=== PATIENT | male | born 1965 | race American Indian/Alaskan Native ===

== ENCOUNTER 2019-08-07 01:19 | Emergency (ER) | payer SELFPAY ==
[2019-08-07 01:27] VITALS: BP 137/86
--- NOTE | 2019-08-07 03:55 | Emergency Department Report ---
ED Rash HPI - HPI Chief Complaint: Skin Rash Stated Complaint: RASH ON BOTH ARMS Time Seen by Provider: 08/07/19 03:54 Duration: 1.5 months Location: Upper Extremities Suspected Cause: Unknown Rash Symptoms: Yes Itching, No Breathing Difficulties, No Wheezing/Dyspnea, No Peeling, No Blistering, No Fever Severity: mild Other History: 53 yo M reports itching rash to bilateral arms for 1.5 months. States he has tried benadryl and "poison christopher cream" without relief. Denies fever. ED Review of Systems ROS: Stated complaint: RASH ON BOTH ARMS Other details as noted in HPI Comment: All other systems reviewed and negative Constitutional: denies: chills, fever Skin: rash ED Past Medical Hx - Past Medical History Previous Medical History?: No - Surgical History Past Surgical History?: No - Social History Smoking Status: Never Smoker Substance Use Type: Alcohol - Medications Home Medications: Home Medications Medication Instructions Recorded Confirmed Last Taken Type No Known Home Medications [No 05/16/15 05/16/15 Unknown History Reported Home Medications] Rash Exam - Exam General: Vital signs noted. No distress. Alert and acting appropriately. HEENT: No Periorbital Edema, No Conjuctival Injection, No Tongue Edema Lungs: Yes Good Air Exchange, No Labored Respirations Heart: Yes Regular Skin: Yes Maculopapular Rash, Yes Excoriations, No Bulla(e), No Weeping, No Erythema, No Encrustations ED Course Vital Signs 08/07/19 01:26 Temperature 98.5 F Pulse Rate 85 Respiratory 18 Rate Blood Pressure 137/86 O2 Sat by Pulse 98 Oximetry ED Medical Decision Making - Medical Decision Making No emergent medical condition at this time. Outpt f/u advised. Critical care attestation.: If time is entered above; I have spent that time in minutes in the direct care of this critically ill patient, excluding procedure time. ED Disposition Clinical Impression: Rash Disposition: MED SCREENING EXAM-LEFT Is pt being admited?: No Condition: Stable Instructions: Acute Rash (ED) Referrals: [facility] [Provider Group] - 3-5 Days ADELFO SUMMERS MD [Staff Physician] - 3-5 Days Time of Disposition: 03:55
== END 2019-08-07 03:59 | disposition left against medical advice (07) ==
LOC: ED 01:19
DX: R21 Rash and other nonspecific skin eruption (principal); L29.9 Pruritus, unspecified
CPT/HCPCS: 99281

== ENCOUNTER 2020-09-21 22:55 | Emergency (ER) | payer BC ==
[2020-09-22 00:10] LABS: Hematocrit 39.9 % (35.5-45.6); Hemoglobin 13.4 gm/dl (11.8-15.2); Mean Corpuscular HGB Conc 34 % (32-34); Mean Corpuscular Volume 89 fl (84-94); Platelet Count 219 K/mm3 (140-440); Red Blood Count 4.49 M/mm3 (3.65-5.03); Red Cell Distribution Width 13.3 % (13.2-15.2)
[2020-09-22 00:38] LABS: Alanine Aminotransferase 12 units/L (7-56); Albumin 4.5 g/dL (3.9-5); Blood Urea Nitrogen 11 mg/dL (9-20); Hemolysis Index 2
[2020-09-22 00:46] LABS: BUN/Creatinine Ratio 16
[2020-09-22 01:01] LABS: Large Platelets Few; Platelet Estimate Consistent w Auto; RBC Morphology Normal; Total Cells Counted 100
--- NOTE | 2020-09-22 03:26 | Emergency Department Report ---
HPI - General Chief Complaint: Dizziness Time Seen by Provider: 09/22/20 03:12 - HPI HPI: Room 21 The patient is a 54-year-old male present with a chief complaint of headache and dizziness. Patient states his symptoms began 3 days ago within a supple h eadache. The patient states that his headache was intermittent but today while at work he developed dizziness whenever he turned. Patient denies any preceding trauma. Patient denies history of fever nausea or vomiting. The patient states he has had several episodes of this in the past but has never sought medical attention. ED Past Medical Hx - Past Medical History Previous Medical History?: No - Surgical History Past Surgical History?: No - Family History Family history: no significant - Social History Smoking Status: Current Every Day Smoker (1/3 pack/day) Substance Use Type: Marijuana - Medications Home Medications: Home Medications Medication Instructions Recorded Confirmed Last Taken Type Butalb/Acetamin/Caff 50-325-40 2 tab PO Q8HR PRN #20 tablet 09/22/20 Unknown Rx [Fioricet 50-325-40] Meclizine [Antivert] 25 mg PO TID PRN #20 tablet 09/22/20 Unknown Rx ED Review of Systems ROS: Stated complaint: HIGH BP/HEADACHE Other details as noted in HPI Constitutional: denies: fever Eyes: denies: eye pain ENT: denies: throat pain Respiratory: no symptoms reported Cardiovascular: denies: chest pain Endocrine: no symptoms reported Gastrointestinal: denies: abdominal pain, nausea, vomiting Genitourinary: denies: dysuria Musculoskeletal: denies: back pain Neurological: headache, vertigo Physical Exam - Physical Exam Vital Signs: Vital Signs 09/21/20 23:27 Temperature 98.5 F Pulse Rate 84 Respiratory 20 Rate Blood Pressure 125/84 O2 Sat by Pulse 98 Oximetry Physical Exam: GENERAL: The patient is well-developed well-nourished male lying on stretcher not appearing to be in acute distress. [] HEENT: Normocephalic. Atraumatic. Extraocular motions are intact. Patient has moist mucous membranes. No nystagmus NECK: Supple. No meningitic signs are noted. Trachea midline CHEST/LUNGS: Clear to auscultation. There is no respiratory distress noted. HEART/CARDIOVASCULAR: Regular. There is no tachycardia. There is no gallop rub or murmur. ABDOMEN: Abdomen is soft, nontender. Patient has normal bowel sounds. There is no abdominal distention. SKIN: There is no rash. There is no edema. There is no diaphoresis. NEURO: The patient is awake, alert, and oriented. The patient is cooperative. The patient has no focal neurologic deficits. The patient has normal speech. Cranial nerves II through XII grossly intact. No dysmetria noted with [id number] bilaterally. GCS 15 MUSCULOSKELETAL: There is no evidence of acute injury. ED Course Vital Signs 09/21/20 23:27 Temperature 98.5 F Pulse Rate 84 Respiratory 20 Rate Blood Pressure 125/84 O2 Sat by Pulse 98 Oximetry ED Medical Decision Making - Lab Data Result diagrams: 09/21/20 23:35 09/21/20 23:35 Laboratory Tests 09/21/20 09/21/20 23:35 23:35 WBC 8.2 RBC 4.49 Hgb 13.4 Hct 39.9 MCV 89 MCH 30 MCHC 34 RDW 13.3 Plt Count 219 Lymph % (Auto) Art Gallery Director Lymph # (Auto) Art Gallery Director Add Manual Diff Complete Total Counted 100 Seg Neutrophils % Art Gallery Director Seg Neuts % (Manual) 32.0 L Lymphocytes % (Manual) 54.0 H Monocytes % (Manual) 10.0 H Eosinophils % (Manual) 2.0 Basophils % (Manual) 2.0 H Nucleated RBC % Not Reportable Seg Neutrophils # Man 2.6 Band Neutrophils # 0.0 Lymphocytes # (Manual) 4.4 Abs React Lymphs (Man) 0.0 Monocytes # (Manual) 0.8 Eosinophils # (Manual) 0.2 Basophils # (Manual) 0.2 H Metamyelocytes # 0.0 Myelocytes # 0.0 Promyelocytes # 0.0 Blast Cells # 0.0 WBC Morphology Not Reportable Hypersegmented Neuts Not Reportable Hyposegmented Neuts Not Reportable Hypogranular Neuts Not Reportable Smudge Cells Not Reportable Toxic Granulation Not Reportable Toxic Vacuolation Not Reportable Dohle Bodies Not Reportable Pelger-Huet Anomaly Not Reportable Adarsh Rods Not Reportable Platelet Estimate Consistent w auto Clumped Platelets Not Reportable Plt Clumps, EDTA Not Reportable Large Platelets Few Giant Platelets Not Reportable Platelet Satelliting Not Reportable Plt Morphology Comment Not Reportable RBC Morphology Normal Dimorphic RBCs Not Reportable Polychromasia Not Reportable Hypochromasia Not Reportable Poikilocytosis Not Reportable Anisocytosis Not Reportable Microcytosis Not Reportable Macrocytosis Not Reportable Spherocytes Not Reportable Pappenheimer Bodies Not Reportable Sickle Cells Not Reportable Target Cells Not Reportable Tear Drop Cells Not Reportable Ovalocytes Not Reportable Helmet Cells Not Reportable [place] Bodies Not Reportable Averill Rings Not Reportable Callao Cells Not Reportable Bite Cells Not Reportable Crenated Cell Not Reportable Elliptocytes Not Reportable Acanthocytes (Spur) Not Reportable Rouleaux Not Reportable Hemoglobin C Crystals Not Reportable Schistocytes Not Reportable Malaria parasites Not Reportable Gerardo Bodies Not Reportable Hem Pathologist Commnt No Sodium 142 Potassium 4.2 Chloride 106.8 Carbon Dioxide 24 Anion Gap 15 BUN 11 Creatinine 0.7 L Estimated GFR > 60 BUN/Creatinine Ratio 16 Glucose 99 Calcium 9.0 Total Bilirubin 0.50 AST 19 ALT 12 Alkaline Phosphatase 70 Troponin T < 0.010 Total Protein 7.2 Albumin 4.5 Albumin/Globulin Ratio 1.7 - EKG Data -: EKG Interpreted by Oh EKG shows normal: sinus rhythm Rate: normal - EKG Data When compared to previous EKG there are: previous EKG unavailable Interpretation: other (No ischemic changes seen) - Radiology Data Radiology results: report reviewed (CT head), image reviewed (CT head) [address] [address] Cat Scan Report Signed Patient: LONDON DURAN MR#: [facility] [id number] : 1965 Acct:[id number] Age/Sex: 54 / M ADM Date: 09/21/20 Loc: ED Attending Dr: Ordering Physician: PRIYANKA CARLSON MD Date of Service: 09/22/20 Procedure(s): CT head/brain wo con Accession Number(s): [id number] cc: PRIYANKA CARLSON MD CT head without contrast INDICATION : Severe headache. TECHNIQUE: Axial imaging performed from the skull apex through the skull base without the use of contrast. All CT examinations performed at this facility utilize dose modulation, iterative reconstruction or weight-based dosing, when appropriate, to reduce radiation dose to as low as reasonably achievable. COMPARISON: None FI NDINGS: No acute intracranial hemorrhage or parenchymal abnormality. Ventricles are normal in size and appear symmetric. Soft tissues including the orbits appear normal. No acute osseous abnormality. Sinuses and mastoid air cells are clear. IMPRESSION: No acute abnormality. Signer Name: Maxwell Martinez MD Signed: 09/22/2020 4:37 AM Workstation Name: [id number] Transcribed By: AMBER Dictated By: Maxwell Martinez MD Electronically Authenticated By: Maxwell Martinez MD Signed Date/Time: 09/22/20436 DD/ 5 TD/TT: Print Cancel - Differential Diagnosis Migraines, vertigo, intracranial mass, Critical care attestation.: If time is entered above; I have spent that time in minutes in the direct care of this critically ill patient, excluding procedure time. ED Disposition Clinical Impression: Headache, Dizziness Disposition: TO HOME OR SELFCARE Is pt being admited?: No Does the pt Need Aspirin: No Condition: Stable Instructions: Dizziness, [id number], General Headache Without Cause, [id number] Additional Instructions: Return to the emergency department should you develop worsening symptoms, inability to tolerate food or liquids, high fever or any other concerns Prescriptions: Meclizine [Antivert] 25 mg PO TID PRN #20 tablet PRN Reason: Vertigo Butalb/Acetamin/Caff 50-325-40 [Fioricet 50-325-40] 2 tab PO Q8HR PRN #20 tablet PRN Reason: Headache Referrals: MARY CARBONE MD [Staff Physician] - 3-5 Days (Dr. Carbone is a neurologist. Please follow-up with him for further evaluation) Time of Disposition: 05:04
[2020-09-22 03:44] VITALS: BP 125/72
--- NOTE | 2020-09-22 09:20 | Electrocardiograph Report ---
[facility] Test Date: 2020-09-21 Test Time: 23:32:24 Pat Name: LONDON DURAN Department: Room: Gender: M [employer] Education Inclusion Teacher: VEGA : 1965 Requested By: PRIYANKA CARLSON Order Number: [id number] Reading MD: Phillip Sebastian Measurements Intervals [place] Rate: 71 P: 71 SD: 146 QRS: 32 QRSD: 85 T: 27 QT: 374 QTc: 406 Interpretive Statements Sinus rhythm Right atrial enlargement No previous ECG available for comparison Electronically Signed On 09-22-2020 9:19:44 EDT by Phillip Sebastian
== END 2020-09-22 05:19 | disposition home or self-care (01) ==
LOC: ED 22:55
DX: R42 Dizziness and giddiness (principal); R51.9 Headache, unspecified; I10 Essential (primary) hypertension; F17.290 Nicotine dependence, other tobacco product, uncomplicated
CPT/HCPCS: 36415; 70450; 80053; 84484; 85007; 85025; 93005; 99284

== ENCOUNTER 2021-01-25 10:09 | Emergency (ER) | payer BC ==
--- NOTE | 2021-01-25 10:51 | Emergency Department Report ---
ED Dizziness HPI - General Chief Complaint: Dizziness Stated Complaint: BLOOD PRESSURE HIGH Time Seen by Provider: 01/25/21 10:31 Source: patient Mode of arrival: Ambulatory Limitations: No Limitations - History of Present Illness Initial Comments: Patient presents with dizziness and lightheadedness. He states that over the last 4 to 5 days he notices that he gets lightheaded and dizzy when he changes position. When he changes from a lying to sitting or sitting to standing position he notices this. As long as he sits still and remain still, he does not feel dizzy. He does not feel dizzy when he turns his head. He does not know if this is related to a prior ear injury. He had perforated both eardrums previously. Patient denies recent head trauma. He has no nausea or vomiting. He has had no diarrhea. He denies numbness or tingling in the arms or legs. He has not noticed any visual disturbance. Patient states that he came in because of been present for the last 4 days or so and he noticed it was getting slightly worse. - Related Data Previous Rx's Medication Instructions Recorded Last Taken Type Butalb/Acetamin/Caff 50-325-40 2 tab PO Q8HR PRN #20 tablet 09/22/20 Unknown Rx [Fioricet 50-325-40] Meclizine [Antivert] 25 mg PO TID PRN #20 tablet 09/22/20 Unknown Rx Allergies Allergy/AdvReac Type Severity Reaction Status Date / Time No Known Allergies Allergy Unverified 05/16/15 13:30 ED Review of Systems ROS: Stated complaint: BLOOD PRESSURE HIGH Other details as noted in HPI Comment: All other systems reviewed and negative Constitutional: denies: fever Eyes: denies: vision change ENT: denies: throat pain Respiratory: denies: cough Cardiovascular: denies: chest pain Endocrine: denies: unexplained weight loss Gastrointestinal: denies: abdominal pain Genitourinary: denies: dysuria Musculoskeletal: denies: back pain Skin: denies: rash Neurological: as per HPI Hematological/Lymphatic: denies: easy bruising ED Past Medical Hx - Past Medical History Previous Medical History?: No - Surgical History Past Surgical History?: No - Family History Family history: no significant - Social History Smoking Status: Current Every Day Smoker (We discussed tobacco cessation x3 minutes) Substance Use Type: Marijuana - Medications Home Medications: Home Medications Medication Instructions Recorded Confirmed Last Taken Type Butalb/Acetamin/Caff 50-325-40 2 tab PO Q8HR PRN #20 tablet 09/22/20 Unknown Rx [Fioricet 50-325-40] Meclizine [Antivert] 25 mg PO TID PRN #20 tablet 09/22/20 Unknown Rx ED Physical Exam - General Limitations: No Limitations, Other General appearance: alert (Pulse ox noted to normal), in no apparent distress - Head Head exam: Present: atraumatic, normocephalic, normal inspection - Eye Eye exam: Present: normal appearance, EOMI. Absent: scleral icterus - ENT ENT exam: Present: normal exam, normal orophraynx, normal external ear exam - Neck Neck exam: Present: normal inspection. Absent: meningismus - Respiratory Respiratory exam: Present: normal lung sounds bilaterally. Absent: respiratory distress - Cardiovascular Cardiovascular Exam: Present: regular rate, normal rhythm - GI/Abdominal GI/Abdominal exam: Present: soft. Absent: tenderness - Extremities Exam Extremities exam: Present: normal capillary refill. Absent: pedal edema - Back Exam Back exam: Absent: CVA tenderness (R), CVA tenderness (L) - Neurological Exam Neurological exam: Present: alert, oriented X3, CN II-XII intact, normal gait, reflexes normal, other (No pronator drift or dysdiadochokinesia. NIH score is 0.). Absent: motor sensory deficit - Psychiatric Psychiatric exam: Present: normal affect, normal mood - Skin Skin exam: Present: warm, dry ED Course Vital Signs 01/25/21 12:01 Pulse Rate [ 55 L Lying] Pulse Rate [ 62 Sitting] Pulse Rate [ 77 Standing] Blood Pressure 139/81 [Lying] Blood Pressure 144/89 [Sitting] Blood Pressure 125/89 [Standing] - Reevaluation(s) Reevaluation #1: 01/25/21 10:51 Orthostatics and Accu-Chek were ordered. Old records reviewed. Reevaluation #2: 01/25/21 13:24 Patient was discharged after work-up. ED Medical Decision Making - Medical Decision Making Patient presented with lightheadedness after movement. There was no vertiginous symptoms. This was not insidious onset. I do not believe this represents central vertigo or cerebellar stroke. NIH score was 0. He did not have any other neurologic symptoms or deficit. Again, I do not believe this represents stroke. There is no headache associated with this that would suggest subarachnoid hemorrhage. He had no head trauma to suggest subdural or epidural hematomas. He did not have any evidence of palpitation or dysrhythmia based on my exam. He was not hypoglycemic. Patient was instructed to drink fluids and return for problems. Etiology for these transient episodes of lightheadedness only with changing position was not known. Critical Care Time: No Critical care attestation.: If time is entered above; I have spent that time in minutes in the direct care of this critically ill patient, excluding procedure time. ED Disposition Clinical Impression: Lightheaded Disposition: 01 HOME / SELF CARE / HOMELESS Is pt being admited?: No Condition: Stable Additional Instructions: DRINK WATER. SEE YOUR DOCTOR FOR RECHECK. RETURN FOR PROBLEMS. Referrals: [facility] [Referring] - 3-5 Days ADELFO SUMMERS MD [Staff Physician] - 3-5 Days
[2021-01-25 12:02] VITALS: BP 139/81
== END 2021-01-25 14:36 | disposition home or self-care (01) ==
LOC: ED 10:09
DX: R42 Dizziness and giddiness (principal); F17.200 Nicotine dependence, unspecified, uncomplicated; F12.90 Cannabis use, unspecified, uncomplicated; Z79.899 Other long term (current) drug therapy
CPT/HCPCS: 82962; 99283

== ENCOUNTER 2021-09-03 04:42 | Emergency (ER) | payer BC ==
[2021-09-03 04:57] VITALS: BP 130/94
== END 2021-09-03 13:00 | disposition left against medical advice (07) ==
LOC: ED 04:42
DX: I10 Essential (primary) hypertension (principal); Z53.21 Procedure and treatment not carried out due to patient leaving prior to being seen by health care provider